=== PATIENT | male | born 1995 | race Caucasian/White ===

== ENCOUNTER → 2024-10-27 | Outpatient (CLI) | payer MEDICAID, SELFPAY ==
--- NOTE | 2024-10-27 09:05 | XR_ITS ---
Examination: Retroperitoneal ultrasound, complete Technique: Multiple high resolution grayscale images of the retroperitoneum obtained, including kidneys and bladder. Exam date and time:October 27, 2024 0921 hours INDICATIONS: History left renal cell carcinoma post nephrectomy 2022, bilateral flank pain 6 months Comparison June 15, 2021 FINDINGS: Right kidney 11.8 cm cortex 1.7 cm Multiple calculi, the largest 7 mm Left kidney 5.8 cm cortex 2.1 cm Multiple calculi, the largest 7 mm Contracted urinary bladder No prostatomegaly, prostate calcifications IMPRESSION: Atrophic left kidney Multiple bilateral nonobstructing renal calculi
== END | disposition home or self-care (01) ==
PROVIDERS: PCP Nurse Practitioner Family; Referring Provider Nurse Practitioner Family; Visit Provider Nurse Practitioner Family
DX: N20.0 Calculus of kidney (principal); R10.9 Unspecified abdominal pain; N26.1 Atrophy of kidney (terminal)
CPT/HCPCS: 76770